=== PATIENT | female | born 1965 | race Caucasian/White ===

== ENCOUNTER 2017-11-17 04:09 | Inpatient (IN) | payer OTHER ==
[2017-11-17 04:56] LABS: ADD MAN DIFF? NO
[2017-11-17] MEDS: ASPIRIN 81 MG TAB PO (04:56)
[2017-11-17 04:58] LABS: WHITE BLOOD COUNT 9.1 10^3/ul (4.8-10.8)
[2017-11-17 04:58] LABS: BASOPHILS % 0.3 % (0.0-2.0); EOSINOPHILS # 0.2 10^3/ul (0.0-0.5); EOSINOPHILS % 2.1 % (0.0-7.0); HEMATOCRIT 35.5 % (37.0-47.0); LYMPHOCYTES # 2.5 10^3/ul (0.8-2.9); LYMPHOCYTES % 27.4 % (15.0-51.0); MEAN CORPUSCULAR HEMOGLOBIN 29.2 pg (29.0-33.0); MEAN CORPUSCULAR HGB CONC 33.8 g/dl (32.0-37.0); MEAN CORPUSCULAR VOLUME 86.4 fl (82.0-101.0); MEAN PLATELET VOLUME 10.8 fl (7.4-10.4); MONOCYTE # 0.7 10^3/ul (0.3-0.9); MONOCYTES % 8.1 % (0.0-11.0); NEUTROPHIL # 5.6 10^3/ul (1.6-7.5); PLATELET COUNT 360 10^3/UL (140-415); RED BLOOD COUNT 4.11 10^6/ul (4.20-5.40); RED CELL DISTRIBUTION WIDTH 14.6 % (11.5-14.5)
[2017-11-17] MEDS: FUROSEMIDE 40 MG INJ IV ×2 (05:24→17:24)
[2017-11-17 05:54] LABS: ALANINE AMINOTRANSFERASE 37 IU/L (13-69); ALBUMIN 3.7 g/dl (3.3-4.9); ALBUMIN/GLOBULIN RATIO 1.15; ALKALINE PHOSPHATASE 113 IU/L (42-121); ANION GAP 16 (8-16); ASPARTATE AMINO TRANSFERASE 32 IU/L (15-46); BILIRUBIN,INDIRECT 0.1 mg/dl (0-1.1); BILIRUBIN,TOTAL 0.1 mg/dl (0.2-1.3); BLOOD UREA NITROGEN 12 mg/dl (7-20); CALCIUM 9.4 mg/dl (8.4-10.2); CARBON DIOXIDE 24 mmol/L (21-31); CHLORIDE 107 mmol/L (97-110); CREATININE 0.59 mg/dl (0.44-1.00); GLUCOSE 120 mg/dl (70-220); LIPASE 141 U/L (23-300); POTASSIUM 3.8 mmol/L (3.5-5.1); SODIUM 143 mmol/L (135-144); TOTAL PROTEIN 6.9 g/dl (6.1-8.1)
[2017-11-17 06:04] LABS: B-TYPE NATRIURETIC PEPTIDE 72 PG/ML (0-125)
[2017-11-17 06:15] LABS: ADD UMIC YES; UR ASCORBIC ACID NEGATIVE (NEGATIVE); UR BILIRUBIN (Dip) NEGATIVE (NEGATIVE); UR BLOOD (Dip) NEGATIVE (NEGATIVE); UR CLARITY CLEAR (CLEAR); UR COLOR COLORLESS (YELLOW); UR GLUCOSE (Dip) NEGATIVE (NEGATIVE); UR KETONES (Dip) NEGATIVE (NEGATIVE); UR LEUKOCYTE ESTERASE (Dip) NEGATIVE Leu/ul (NEGATIVE); UR NITRITE (Dip) NEGATIVE (NEGATIVE); UR RBC 0 /HPF (0-5); UR SPECIFIC GRAVITY (Dip) 1.004 (1.003-1.030); UR TOTAL PROTEIN (Dip) 2+ mg/dl (NEGATIVE); UR UROBILINOGEN (Dip) NEGATIVE (NEGATIVE); UR WBC 0 /HPF (0-5)
[2017-11-17 06:17] LABS: TROPONIN-I < 0.012 ng/ml (0.000-0.120)
[2017-11-17] MEDS ORDERED: ACETAMINOPHEN 325 MG TAB PO (09:00)
[2017-11-17] MEDS ORDERED: HYDROCODONE/APAP (5/325) TAB PO (09:00)
[2017-11-17] MEDS ORDERED: NACL 0.9% 3 ML SYG IV (09:00)
[2017-11-17] MEDS ORDERED: ONDANSETRON 4 MG INJ IV (09:00)
[2017-11-17] MEDS: ENOXAPARIN 40 MG/0.4 ML SYG SC (09:29)
[2017-11-17] MEDS: ASPIRIN (EC) 81 MG TAB PO (09:29)
[2017-11-17] MEDS: ATENOLOL 25 MG TAB PO (09:51)
[2017-11-17] MEDS: GEMFIBROZIL 600 MG TAB PO ×2 (09:51→21:51)
[2017-11-17] MEDS: HYDROCHLOROTHIAZIDE 25 MG TAB PO (09:51)
[2017-11-17] MEDS: AMLODIPINE 10 MG TAB PO (09:51)
[2017-11-17] MEDS: LOSARTAN 50 MG TAB PO (09:52)
[2017-11-17 10:19] LABS: CREATINE KINASE 77 IU/L (23-200)
[2017-11-17 10:29] LABS: CK INDEX 1.5; CK-MB 1.13 ng/ml (0.0-2.4)
[2017-11-17 10:30] LABS: TROPONIN-I < 0.012 ng/ml (0.000-0.120)
[2017-11-17] MEDS ORDERED: DEXTROSE 50% 50 ML SYRINGE IV ×2 (11:00)
[2017-11-17] MEDS ORDERED: GLUCOSE GEL 15 GRAM TUBE PO ×2 (11:00)
[2017-11-17] MEDS ORDERED: GLUCAGON 1 MG INJ IM (11:00)
[2017-11-17] MEDS ORDERED: GLUCOSE GEL 15 GRAM TUBE BUCCAL (11:00)
[2017-11-17] MEDS: INSULIN ASPART [NOVOLOG] 3 ML PEN SC ×7 (11:44→21:00)
[2017-11-17 11:51] LABS: HEMOGLOBIN A1C 8.8 % (0-5.9)
[2017-11-17] MEDS: INSULIN GLARGINE [LANtus] 3 ML PEN SC (21:52)
[2017-11-18] MEDS: FUROSEMIDE 40 MG INJ IV ×2 (05:36→17:15)
[2017-11-18 07:50] LABS: ADD MAN DIFF? NO
[2017-11-18 07:56] LABS: WHITE BLOOD COUNT 6.5 10^3/ul (4.8-10.8)
[2017-11-18 07:56] LABS: BASOPHILS % 0.5 % (0.0-2.0); EOSINOPHILS # 0.2 10^3/ul (0.0-0.5); EOSINOPHILS % 2.5 % (0.0-7.0); HEMATOCRIT 38.7 % (37.0-47.0); HEMOGLOBIN 12.7 g/dl (12.0-16.0); LYMPHOCYTES # 2.1 10^3/ul (0.8-2.9); LYMPHOCYTES % 32.5 % (15.0-51.0); MEAN CORPUSCULAR HEMOGLOBIN 27.9 pg (29.0-33.0); MEAN CORPUSCULAR HGB CONC 32.8 g/dl (32.0-37.0); MEAN CORPUSCULAR VOLUME 84.9 fl (82.0-101.0); MEAN PLATELET VOLUME 10.7 fl (7.4-10.4); MONOCYTE # 0.6 10^3/ul (0.3-0.9); MONOCYTES % 9.1 % (0.0-11.0); NEUTROPHIL # 3.6 10^3/ul (1.6-7.5); NEUTROPHILS % 54.8 % (39.0-77.0); PLATELET COUNT 340 10^3/UL (140-415); RED BLOOD COUNT 4.56 10^6/ul (4.20-5.40); RED CELL DISTRIBUTION WIDTH 14.9 % (11.5-14.5)
[2017-11-18 08:21] LABS: CHOL/HDL RATIO 6.2 RATIO; CHOLESTEROL 262 mg/dl (100-200); HDL CHOLESTEROL 42 mg/dl (37-92); MAGNESIUM 1.4 mg/dl (1.7-2.5)
[2017-11-18] MEDS: LOSARTAN 50 MG TAB PO (08:22)
[2017-11-18] MEDS: HYDROCHLOROTHIAZIDE 25 MG TAB PO (08:22)
[2017-11-18] MEDS: ATENOLOL 25 MG TAB PO (08:23)
[2017-11-18] MEDS: AMLODIPINE 10 MG TAB PO (08:23)
[2017-11-18] MEDS: ASPIRIN (EC) 81 MG TAB PO (08:23)
[2017-11-18] MEDS: GEMFIBROZIL 600 MG TAB PO (08:23)
[2017-11-18] MEDS: ENOXAPARIN 40 MG/0.4 ML SYG SC (08:24)
[2017-11-18 08:25] LABS: ALANINE AMINOTRANSFERASE 51 IU/L (13-69); ALBUMIN 3.7 g/dl (3.3-4.9); ALBUMIN/GLOBULIN RATIO 1.08; ALKALINE PHOSPHATASE 75 IU/L (42-121); ANION GAP 17 (8-16); ASPARTATE AMINO TRANSFERASE 61 IU/L (15-46); BILIRUBIN,INDIRECT 0.6 mg/dl (0-1.1); BILIRUBIN,TOTAL 0.6 mg/dl (0.2-1.3); BLOOD UREA NITROGEN 14 mg/dl (7-20); CALCIUM 9.2 mg/dl (8.4-10.2); CARBON DIOXIDE 31 mmol/L (21-31); CHLORIDE 97 mmol/L (97-110); CREATININE 0.64 mg/dl (0.44-1.00); GLUCOSE 193 mg/dl (70-220); POTASSIUM 3.9 mmol/L (3.5-5.1); SODIUM 141 mmol/L (135-144); TOTAL PROTEIN 7.1 g/dl (6.1-8.1)
[2017-11-18 08:27] LABS: CREATINE KINASE 513 IU/L (23-200)
[2017-11-18 08:31] LABS: B-TYPE NATRIURETIC PEPTIDE 44 PG/ML (0-125)
[2017-11-18 08:32] LABS: TRIGLYCERIDES 1035 mg/dl (0-149)
[2017-11-18 08:33] LABS: CK INDEX 0.1; CK-MB 0.55 ng/ml (0.0-2.4)
[2017-11-18 08:36] LABS: TROPONIN-I < 0.012 ng/ml (0.000-0.120)
[2017-11-18] MEDS: INSULIN ASPART [NOVOLOG] 3 ML PEN SC ×6 (08:42→17:25)
[2017-11-18] MEDS: MAGNESIUM SULFATE 3 GM in DEXTROSE 5% 100 ML IVPB (15:07)
[2017-11-18] MEDS ORDERED: ATORVASTATIN 40 MG TAB PO (21:00)
[2017-11-19] MEDS ORDERED: LEVOTHYROXINE 75 MCG TAB PO (06:00)
[2017-11-19] MEDS ORDERED: LEVOTHYROXINE 50 MCG TAB PO (06:00)
== END 2017-11-18 18:35 | disposition home or self-care (01) | DRG 291 ==
LOC: E/R 04:09 → MS3 05:50 → MS4 17:52
PROVIDERS: Internal Medicine
DX: I11.0 Hypertensive heart disease with heart failure (principal); J96.00 Acute respiratory failure, unspecified whether with hypoxia or hypercapnia; Z68.43 Body mass index [BMI] 50.0-59.9, adult; I50.33 Acute on chronic diastolic (congestive) heart failure; E11.9 Type 2 diabetes mellitus without complications; E78.5 Hyperlipidemia, unspecified; G47.33 Obstructive sleep apnea (adult) (pediatric); E03.9 Hypothyroidism, unspecified; Z79.82 Long term (current) use of aspirin; Z79.4 Long term (current) use of insulin; E66.01 Morbid (severe) obesity due to excess calories
CPT/HCPCS: 36415; 71045; 71275; 80053; 80061; 81001; 82550; 82553; 82962; 83036; 83690; 83735; 83880; 84100; 84439; 84443; 84484; 85025; 93005; 93306; 96372; 96374; 99285-25